=== PATIENT | male | born 1970 | race Caucasian/White ===

== ENCOUNTER 2023-06-09 09:22 | Day surgery (SDC) | payer OTHER ==
[~2023-06-09] VITALS: Ht 177.8 cm; Wt 100.9 kg
[2023-06-09] MEDS ORDERED: DOXE50 PO (09:45)
[2023-06-09] MEDS ORDERED: FLUOXETINE HCL20 M2 PO (09:45)
[2023-06-09] MEDS ORDERED: KLONOPIN0.5 M9 PO (09:46)
[2023-06-09] MEDS ORDERED: LURASIDONE HCL60 MG PO (09:46)
[2023-06-09 10:40] VITALS: BP 126/85
== END 2023-06-09 10:41 | disposition home or self-care (01) ==
LOC: ORSCSDS 09:22
PROVIDERS: Internal Medicine Gastroenterology
PROC: 0DJD8ZZ Inspection of Lower Intestinal Tract, Via Natural or Artificial Opening Endoscopic (ICD-10-PCS; principal; 2023-06-09 10:30)
DX: Z12.11 Encounter for screening for malignant neoplasm of colon (principal); F31.9 Bipolar disorder, unspecified; Z87.891 Personal history of nicotine dependence; Z79.899 Other long term (current) drug therapy
CPT/HCPCS: J2704; J7120